=== PATIENT | male | born 1955 | race Caucasian/White ===

== ENCOUNTER 2023-07-07 21:14 | Emergency (ER) | payer OTHER, MEDICARE ==
[~2023-07-07] VITALS: Ht 175.3 cm; Wt 99.8 kg
[2023-07-07 21:43] VITALS: BP_SYST 129; PULSE 84; RESP 20; TEMP 98.3; O2SAT 98
[2023-07-08] MEDS ORDERED: MORPHINE 4 MG INJ. 4 MG/ML VIAL IM ONE (01:15)
[2023-07-08] MEDS ORDERED: TRAM50TA2 PO (01:49)
[2023-07-08 01:54] VITALS: BP_SYST 133; PULSE 70; RESP 18; TEMP 98; O2SAT 97
== END 2023-07-08 01:56 | disposition home or self-care (01) ==
LOC: SED 21:14
DX: S00.83XA Contusion of other part of head, initial encounter (principal); S20.212A Contusion of left front wall of thorax, initial encounter; S80.02XA Contusion of left knee, initial encounter; Z79.899 Other long term (current) drug therapy; W18.30XA Fall on same level, unspecified, initial encounter; Y93.89 Activity, other specified; Y92.89 Other specified places as the place of occurrence of the external cause; Y99.8 Other external cause status
CPT/HCPCS: 99285; 70450; 73564; 70486; 71250; 96372; 76376; J2270